=== PATIENT | female | born 1995 | race Hispanic/Latino ===

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

== ENCOUNTER 2017-01-26 13:57 | Emergency (ER) | payer OTHER ==
[~2017-01-26] VITALS: Ht 152.4 cm; Wt 54.5 kg
[2017-01-26 14:07] VITALS: BP 129/74; PULSE 86; RESP 15; O2SAT 97
--- NOTE | 2017-01-26 14:40 | ED.REPORT ---
HPI- Female Date of Service Jan 26, 2017 ED Provider: Erich Nolasco PA-C Karina is a 21-year-old female with a history of recurrent urinary tract infections presenting with a chief complaint of a possible urinary tract infection. Patient complains of one week history of dysuria, poor sleep, abdominal pain, bilateral flank pain. Denies vomiting, fever, shaking chills, hematuria, vaginal bleeding/discharge. Patient has little concern for a sexually transmitted disease and recently finished her menstrual period. Patient reports that her symptoms similar to previous episodes of urinary tract infection. Her last episode was 3 months ago. Patient does not have a primary care provider. She has been treating herself with Azo. Nursing Notes Stated Complaint: POSS URINARY INFECTION Chief Complaint: Female Abdominal Pain Nursing Notes Reviewed: Yes Allergies: Coded Allergies: No Known Allergies (Unverified , 08/23/16) Scheduled Doxycycline Monohyd (Doxycycline Monohyd) 100 Mg Tablet 100 MG PO BID Fluconazole (Fluconazole) 150 Mg Tablet 150 MG PO ONCE Phenazopyridine (Pyridium) 100 Mg Tablet 100 MG PO TID Sulfamethoxazole/Trimeth 800-160 mg (Bactrim DS) 1 Each Tablet 1 TABLET PO BID Sulfamethoxazole/Trimeth 800-160 mg (Bactrim DS) 1 Each Tablet 1 TABLET PO BID Sulfamethoxazole/Trimeth 800-160 mg (Bactrim DS) 1 Each Tablet 1 TABLET PO BID Scheduled PRN Phenazopyridine (Phenazopyridine) 100 Mg Tablet 100 MG PO TID PRN PRN For Pain General Time Seen by MD: 14:20 Chief Complaint Urination painful Sudden in Onset?: No Past Medical History Past Medical History Denies Reports: Urinary tract infection Past Surgical History None Smoking History Never Smoker Social History Alcohol Use: Denies alcohol use Drug Use: Denies drug use Other Social History: Good social support Ambulatory Status Independent Review of Systems Negative unless stated otherwise in history of present illness Physical Exam General: Well appearing, well developed, well nourished, no acute distress. Head: Atraumatic, normocephalic. Eyes: No scleral icterus or injection. No discharge. Vision grossly intact. ENT: Voice clear, hearing grossly intact. Respiratory: Regular rate and rhythm. Breath sounds present, clear to auscultation and equal bilaterally. No respiratory distress. No increased work of breathing, speaks in complete sentences. Cardiovascular: Regular rate and rhythm, without murmur, gallop or rub. No pedal edema. Gastrointestinal: Abdomen flat mild global tenderness without guarding or rebound. Bowel sounds normoactive. Back: Normal to inspection, negative CVA tenderness. Skin: Warm and dry. Neurological: Grossly nonfocal. Psychological: Alert and oriented. Speech appropriate, linear and logical. Behavior appropriate. Initial Vital Signs Vital Signs (First) Date Time Temp Pulse Resp B/P Pulse Ox O2 Delivery O2 Flow Rate FiO2 01/26/17 14:07 36.8 86 15 129/74 97 Room Air Normal Interpretation & Diagnostics Lab Results Interpretation Test 01/26/17 14:42 Urine Color [place] (YELLOW) Urine Appearance Hazy (CLEAR,HAZY) Urine pH (5.0-8.0) Urine Specific [place] (1.003-1.035) Urine Protein mg/dL (NEG,TRACE) Urine Glucose (UA) mg/dL (NEGATIVE) Urine Ketones mg/dL (NEGATIVE) Urine Occult Blood (NEGATIVE) Urine Nitrite (NEGATIVE) Urine Bilirubin (NEGATIVE) Urine Urobilinogen mg/dL (NORMAL) Urine Leukocyte Esterase (NEGATIVE) Urine RBC 11-50/hpf (0-2) Urine WBC >50/hpf (0-5) Urine Epithelial Cells Occasional/hpf (NONE-MOD) Urine Crystals None seen (NONE SEEN) Urine Bacteria Few/hpf (NONE-FEW) Urine Hyaline Casts None/lpf (NONE) Urine Granular Casts None seen (NONE SEEN) Urine Waxy Casts None seen (NONE SEEN) Urine Red Blood Cell Casts None seen (NONE SEEN) Urine White Blood Cell Casts None seen (NONE SEEN) Urine Mucus None seen (None Seen) Urine Trichomonas None seen (NONE SEEN) Urine Yeast None (NONE SEEN) Urinalysis Comment Color interference Urine Culture Reflexed Indicated Re-Eval/Medical Decision Med Decision/Clinical Course Otherwise healthy 21-year-old female presents with chief complaint of possible urinary tract infection. Patient reports a history of urinary tract infections. Complains of dysuria, abdominal pain, flank pain, poor sleep. Denies hematuria, vomiting, fever, vaginal bleeding or discharge. Recently finished menstrual period, is not concerned about STI. Physical examination reveals mild abdominal tenderness predominantly in the lower quadrants. Negative CVA tenderness. Vital signs are normal. test is negative, UA reveals 11-50 rbc's, greater than 50 WBC, few bacteria. Dip urinalysis is obscured by the color of the patient's urine as she was taking Azo. This point I am reassured this is unlikely to be pyelonephritis, gonorrhea/ chlamydia, bacterial vaginosis and is most likely uncomplicated cystitis. Patient reports good success with the medication use 3 months ago, poor results with the antibiotic is previously to that. Records indicates she was prescribed Bactrim DS in this department 3 months ago. I will repeat that today , and supplied a prescription for Pyridium. I additionally provided primary care referral and encouraged her to establish care. Provided emergency return precautions. Patient verbalized understanding of and consented to plan Discharge & Departure Impression: Primary Impression: UTI (urinary tract infection) Urinary tract infection type: acute cystitis Hematuria presence: with hematuria Qualified Code: N30.01 - Acute cystitis with hematuria Disposition: Home Discharge Condition All VS Reviewed: Yes Condition: Stable Patient Instructions: Urinary Tract Infection in Women (ED) Additional Instructions: Evaluation in the emergency department for possible urinary tract infection includes interview, physical examination and urinalysis all of which suggest that you in fact have a urinary tract infection, and a reassuring that it is not a more concerning condition such as a sexual transmitted disease or kidney infection. You were previously prescribed Bactrim DS, and we will use this again today. Please take one pill twice a day for the next 7 days. Be sure to take every dose. I also write a prescription for Pyridium to be taken for the next 3 days to help with the pain. Can further treat your pain with 400 mg of ibuprofen (Advil, Motrin) every 6 hours, or 1000 mg of acetaminophen (Tylenol) every 6 hours. These drugs can be taken at the same time for more severe pain. I have also given a referral for a primary care provider. Please contact them to establish care and follow-up if this does not resolve in 3-4 days. Return to the emergency department for new or worsening symptoms including vomiting, fever, severe back pain. Referrals: Venecia Veras MD [facility]ising Provider for APC: James Mariee MD, Seth PA-C Jan 26, 2017 14:40
[2017-01-26] MEDS ORDERED: SULF1TAB7 PO (14:54)
[2017-01-26 15:03] LABS: APPEARANCE,URINE HAZY (CLEAR,HAZY); COLOR,URINE ORANGE (YELLOW)
[2017-01-26] MEDS ORDERED: PHEN-683 PO (15:17)
[2017-01-26 15:43] VITALS: BP 124/72; PULSE 81; RESP 16; O2SAT 97
== END 2017-01-26 15:44 | disposition home or self-care (01) ==
LOC: SED 13:57
DX: N30.01 Acute cystitis with hematuria (principal); B96.20 Unspecified Escherichia coli [E. coli] as the cause of diseases classified elsewhere